=== PATIENT | female | born 1930 | race African-American/Black ===

== ENCOUNTER 2016-08-08 23:46 | Emergency (ER) | payer MEDICARE, OTHER ==
[~2016-08-08] VITALS: Ht 162.6 cm; Wt 68.9 kg
[~2016-08-08 23:46] MED LIST: AMLO10TA2; AMLO10TA2 PO; DILT120C13 PO; FESO4TAB; FESO4TAB PO; FURO20TA3; FURO20TA3 PO; HYDR-2666 PO; HYDR-2868 PO; LISI-334 PO; LISI1TAB5; LISI40TA PO; LORA10TA3; LORA10TA3 PO; LOSA1TAB18 PO; OXYB5TAB7; POTA20TA12; SIMV20TA3; TOLT2TAB4 PO; VENTOLIN HFA18 GM
[2016-08-08 23:58] VITALS: BP 207/84
[2016-08-09] MEDS ORDERED: IV NORMAL SALINE 500ML BAG 500 ML IV ONE (00:15)
[2016-08-09 00:39] LABS: BASO % 1 % (0-3); EOS % 8 % (0-3); HEMATOCRIT 37.6 % (36.0-47.0); HEMOGLOBIN 12.3 g/dL (12.0-15.5); LYMPH # 1.6 x10^3/uL (1.0-4.8); LYMPH % 41 % (24-48); MEAN CORPUSCULAR HEMOGLOBIN 29 pg (25-35); MEAN CORPUSCULAR HGB CONC 33 g/dL (31-37); MEAN CORPUSCULAR VOLUME 89 fL (79-100); MONO % 15 % (0-9); NEUT % 35 % (31-73); PLATELET COUNT 165 x10^3/uL (140-400); RED BLOOD COUNT 4.21 x10^6/uL (3.50-5.40); RED CELL DISTRIBUTION WIDTH 14.1 % (11.5-14.5); WHITE BLOOD COUNT 3.9 x10^3/uL (4.0-11.0)
[2016-08-09 00:42] LABS: CALCIUM 8.7 mg/dL (8.5-10.1); CREATININE 0.9 mg/dL (0.6-1.0); GFR 71.7; POTASSIUM 3.2 mmol/L (3.5-5.1)
--- NOTE | 2016-08-09 00:45 | PHYS DOC ---
Past Medical History Past Medical History: Hypertension Additional Past Medical Histor: POOR HISTORIAN Past Surgical History: , Hysterectomy Alcohol Use: None Drug Use: None Adult General Chief Complaint Chief Complaint: COUGH HPI HPI Patient is a 86 year old female who presents by EMS for 2 weeks of cough with white sputum. She also notes slightly decreased oral intake and fatigue over this time. She denies fever or chills, nausea or vomiting, abdominal pain, chest pain, dyspnea, hemoptysis, leg pain or swelling, orthopnea, exertional dyspnea, exertional chest pain, lightheadedness. Review of Systems Review of Systems Constitutional: Denies fever or chills [] Eyes: Denies change in visual acuity, redness, or eye pain [] HENT: Denies nasal congestion or sore throat [] Respiratory: Denies shortness of breath [] Cardiovascular: No additional information not addressed in HPI [] GI: Denies abdominal pain, nausea, vomiting, bloody stools or diarrhea [] : Denies dysuria or hematuria [] Musculoskeletal: Denies back pain or joint pain [] Integument: Denies rash or skin lesions [] Neurologic: Denies headache, focal weakness or sensory changes [] Endocrine: Denies polyuria or polydipsia [] Current Medications Current Medications Current Medications Medications (Trade) Dose Ordered Sig/Hood Start Time Stop Time Status Last Admin Dose Admin Potassium Chloride (Klor-Con) 20 meq STK-MED ONCE 08/09/16 00:51 08/09/16 00:52 DC Sodium Chloride (Iv Sodium Chloride 0.9% 500ml Bag) 500 ml @ 500 mls/hr 1X ONCE 08/09/16 00:15 08/09/16 01:14 08/09/16 00:18 500 MLS/HR Allergies Allergies Allergies Coded Allergies Type Severity Reaction Last Updated Verified No Known Drug Allergies 05/31/16 No Physical Exam Physical Exam Constitutional: Well developed, well nourished, no acute distress, non-toxic appearance. [] HENT: Normocephalic, atraumatic, bilateral external ears normal, oropharynx moist, no oral exudates, nose normal. [] Eyes: PERRLA, EOMI. [] Neck: Normal range of motion, supple. [] Cardiovascular:Heart rate regular rhythm [] Lungs & Thorax: Bilateral breath sounds clear to auscultation [] Abdomen: Bowel sounds normal, soft, no tenderness. [] Skin: Warm, dry, no erythema, no rash. [] Back: No tenderness, no CVA tenderness. [] Extremities: No tenderness, ROM intact, no edema, no palpable cord. [] Neurologic: Alert and oriented X 3, normal motor function, normal sensory function, no focal deficits noted. [] Psychologic: Affect normal, judgement normal, mood normal. [] Current Patient Data Vital Signs Vital Signs Date Time Temp Pulse Resp B/P Pulse Ox O2 Delivery O2 Flow Rate FiO2 08/08/16 23:58 98.1 80 18 207/84 98 Room Air 98.1 Lab Values Laboratory Tests Test 08/09/16 00:20 White Blood Count 3.9x10^3/uL (4.0-11.0) L Red Blood Count 4.21x10^6/uL (3.50-5.40) Hemoglobin 12.3g/dL (12.0-15.5) Hematocrit 37.6% (36.0-47.0) Mean Corpuscular Volume 89fL (79-100) Mean Corpuscular Hemoglobin 29pg (25-35) Mean Corpuscular Hemoglobin Concent 33g/dL (31-37) Red Cell Distribution Width 14.1% (11.5-14.5) Platelet Count 165x10^3/uL (140-400) Neutrophils (%) (Auto) 35% (31-73) Lymphocytes (%) (Auto) 41% (24-48) Monocytes (%) (Auto) 15% (0-9) H Eosinophils (%) (Auto) 8% (0-3) H Basophils (%) (Auto) 1% (0-3) Neutrophils # (Auto) 1.4x10^3uL (1.8-7.7) L Lymphocytes # (Auto) 1.6x10^3/uL (1.0-4.8) Monocytes # (Auto) 0.6x10^3/uL (0.0-1.1) Eosinophils # (Auto) 0.3x10^3/uL (0.0-0.7) Basophils # (Auto) 0.0x10^3/uL (0.0-0.2) Sodium Level 144mmol/L (136-145) Potassium Level 3.2mmol/L (3.5-5.1) L Chloride Level 106mmol/L (98-107) Carbon Dioxide Level 34mmol/L (21-32) H Anion Gap 4 (6-14) L Blood Urea Nitrogen 15mg/dL (7-20) Creatinine 0.9mg/dL (0.6-1.0) Estimated GFR (Cockcroft-Gault) 71.7 Glucose Level 112mg/dL (70-99) H Calcium Level 8.7mg/dL (8.5-10.1) Laboratory Tests 08/09/16 00:20 Laboratory Tests 08/09/16 00:20 Radiology/Procedures Radiology/Procedures Chest xray as interpreted by me with no acute cardiopulmonary disease process Course & Med Decision Making Course & Med Decision Making Pertinent Labs and Imaging studies reviewed. (See chart for details) Workup is unremarkable other than hypokalemia which was replaced by mouth. Discussed symptomatic care for likely viral upper respiratory infection. She feels comfortable going home. Return precautions given. She understands and agrees with plan. Dragon Disclaimer Dragon Disclaimer This electronic medical record was generated, in whole or in part, using a voice recognition dictation system. Departure Departure Impression: Primary Impression: Upper respiratory infection, viral Disposition: 01 HOME, SELF-CARE Condition: STABLE Referrals: PEYMAN MICHELLE MD (PCP) Patient Instructions: Upper Respiratory Infection, Adult, [id number] Additional Instructions: Use honey to help with cough. Follow-up with your primary care doctor within one week. Return for any concerns. Mike WASHBURN MD Aug 09, 2016 00:45
[2016-08-09] MEDS ORDERED: POTASSIUM CHLORIDE 20 MEQ TABLET.ER. PO ONE ×2 (00:51→02:00)
--- NOTE | 2016-08-09 07:29 | RAD ---
Portable AP upright view CXR: Clinical indications: Cough tonight. Weakness. Comparison: May 31, 2016. Findings: Mild elevation of the left hemidiaphragm is seen. No acute lung infiltrate or pleural effusion or pulmonary edema or lung mass or pneumothorax is seen. The heart size, pulmonary vasculature, mediastinum and both lee are unremarkable. Impression: No acute radiographic abnormality is seen.
== END 2016-08-09 01:13 | disposition home or self-care (01) ==
LOC: ER 23:46
DX: J06.9 Acute upper respiratory infection, unspecified (principal); R53.1 Weakness; I10 Essential (primary) hypertension
CPT/HCPCS: 36415; 71010; 80048; 85027; 96360; 99285; J7040

== ENCOUNTER 2017-07-20 15:29 | Inpatient (IN) | payer MEDICARE, OTHER ==
[2017-07-20 16:19] LABS: ADD MAN DIFF? NO
[2017-07-20 16:21] LABS: BASO % 1 % (0-3); EOS # 0.3 x10^3/uL (0.0-0.7); EOS % 7 % (0-3); HEMATOCRIT 36.1 % (36.0-47.0); HEMOGLOBIN 12.4 g/dL (12.0-15.5); LYMPH % 25 % (24-48); MEAN CORPUSCULAR HEMOGLOBIN 31 pg (25-35); MEAN CORPUSCULAR HGB CONC 34 g/dL (31-37); MEAN CORPUSCULAR VOLUME 90 fL (79-100); MONO # 0.6 x10^3/uL (0.0-1.1); MONO % 15 % (0-9); NEUT % 52 % (31-73); PLATELET COUNT 163 x10^3/uL (140-400); RED BLOOD COUNT 4.02 x10^6/uL (3.50-5.40); RED CELL DISTRIBUTION WIDTH 13.1 % (11.5-14.5); WHITE BLOOD COUNT 3.8 x10^3/uL (4.0-11.0)
[2017-07-20 16:31] LABS: INR 1.1 (0.8-1.1); PROTHROMBIN TIME PATIENT 13.6 SEC (11.7-14.0)
[2017-07-20 16:40] LABS: ALBUMIN 3.2 g/dL (3.4-5.0); ALK PHOS 90 U/L (46-116); ALT (SGPT) 32 U/L (14-59); ANION GAP 9 (6-14); AST (SGOT) 44 U/L (15-37); BLOOD UREA NITROGEN 16 mg/dL (7-20); CALCIUM 8.7 mg/dL (8.5-10.1); CARBON DIOXIDE 33 mmol/L (21-32); CHLORIDE 103 mmol/L (98-107); DIRECT BILIRUBIN 0.4 mg/dL (0.0-0.2); GFR 63.3; GLUCOSE 91 mg/dL (70-99); LIPASE 209 U/L (73-393); MAGNESIUM 2.1 mg/dL (1.8-2.4); SODIUM 145 mmol/L (136-145); TOTAL BILIRUBIN 0.8 mg/dL (0.2-1.0); TOTAL PROTEIN 6.6 g/dL (6.4-8.2)
[2017-07-20 16:41] LABS: POTASSIUM 2.8 mmol/L (3.5-5.1)
[2017-07-20 16:42] LABS: TROPONINI < 0.017 ng/mL (0.000-0.055)
[2017-07-20 16:44] LABS: BILIRUBIN,URINE SMALL (NEG); CLARITY,URINE CLEAR; COLOR,URINE AMBER; GLUCOSE,URINE NEGATIVE (NEG); NITRITE,URINE NEGATIVE (NEG); PROTEIN,URINE 100 mg/dL (NEG-TRACE)
[2017-07-20 16:48] LABS: THYROID STIM HORMONE (TSH) 2.013 uIU/mL (0.358-3.74)
[2017-07-20 16:49] LABS: CKMB MASS 1.3 ng/mL (0.0-3.6); CREATINE KINASE 124 U/L (26-192)
[2017-07-20 16:49] LABS: NT-PRO BNP 6041 pg/mL (0-449)
[2017-07-20 16:51] LABS: AMPHETAMINE/METHAMPHETAMINE NEG (NEG); BARBITURATES NEG (NEG); BENZODIAZEPINES NEG (NEG); CANNABINOIDS NEG (NEG); COCAINE NEG (NEG); ETHANOL, URINE NEG (NEG); METHADONE NEG (NEG); OPIATES NEG (NEG); PHENCYCLIDINE NEG (NEG)
[2017-07-20 16:57] LABS: BACTERIA,URINE 0 /HPF (0-FEW); WBC,URINE OCC /HPF (0-4)
[2017-07-20 16:58] LABS: HYALINE CASTS, URINE MANY /HPF
[2017-07-20 17:11] LABS: INFLUENZA A PATIENT NEGATIVE (NEGATIVE); INFLUENZA B PATIENT NEGATIVE (NEGATIVE); OBC FLU VALID
[2017-07-20] MEDS: hydrALAZINE 20 MG/ML VIAL. IVP (17:20)
[2017-07-20] MEDS: POTASSIUM CHLORIDE 20 MEQ TABLET.ER. PO (17:29)
[2017-07-20] MEDS ORDERED: ONDANSETRON PF 4 MG/2 ML VIAL. IV (17:45)
[2017-07-20] MEDS: POTASSIUM CL 20MEQ D5-0.45NACL 1,000 ML IV (22:54)
[2017-07-20] MEDS: OXYBUTYNIN CHLORIDE 5 MG TABLET PO (22:54)
[2017-07-20] MEDS: hydrALAZINE 25 MG TABLET PO (22:54)
[2017-07-21] LABS: TROPONINI 0.024 ng/mL (0.000-0.055)
[2017-07-21] MEDS ORDERED: INFLUENZA VAX SCREEN BY RX. MC (01:45)
[2017-07-21] MEDS ORDERED: PNEUMOCOCCAL VAX SCREEN BY RX. MC (01:45)
[2017-07-21 05:23] LABS: ADD MAN DIFF? NO
[2017-07-21 05:59] LABS: ANION GAP 9 (6-14); BLOOD UREA NITROGEN 14 mg/dL (7-20); CALCIUM 8.5 mg/dL (8.5-10.1); CARBON DIOXIDE 30 mmol/L (21-32); CHLORIDE 103 mmol/L (98-107); GFR 63.3; GLUCOSE 94 mg/dL (70-99); POTASSIUM 3.4 mmol/L (3.5-5.1); SODIUM 142 mmol/L (136-145)
[2017-07-21 06:04] LABS: BASO % 1 % (0-3); EOS # 0.3 x10^3/uL (0.0-0.7); EOS % 6 % (0-3); HEMATOCRIT 37.5 % (36.0-47.0); HEMOGLOBIN 12.6 g/dL (12.0-15.5); LYMPH # 1.5 x10^3/uL (1.0-4.8); LYMPH % 35 % (24-48); MEAN CORPUSCULAR HEMOGLOBIN 30 pg (25-35); MEAN CORPUSCULAR HGB CONC 34 g/dL (31-37); MEAN CORPUSCULAR VOLUME 90 fL (79-100); MONO # 0.6 x10^3/uL (0.0-1.1); MONO % 13 % (0-9); NEUT % 46 % (31-73); PLATELET COUNT 176 x10^3/uL (140-400); RED BLOOD COUNT 4.17 x10^6/uL (3.50-5.40); RED CELL DISTRIBUTION WIDTH 13.3 % (11.5-14.5); WHITE BLOOD COUNT 4.5 x10^3/uL (4.0-11.0)
[2017-07-21 06:12] LABS: TROPONINI 0.022 ng/mL (0.000-0.055)
[2017-07-21] MEDS: OXYBUTYNIN CHLORIDE 5 MG TABLET PO ×2 (08:35→21:09)
[2017-07-21] MEDS: FUROSEMIDE 20 MG TABLET PO (08:35)
[2017-07-21] MEDS: hydroCHLOROthiazide 12.5 MG CAPSULE PO (08:35)
[2017-07-21] MEDS: LOSARTAN POTASSIUM 50 MG TABLET. PO (08:35)
[2017-07-21] MEDS: hydrALAZINE 25 MG TABLET PO ×4 (08:35→21:10)
[2017-07-21] MEDS: POTASSIUM CHLORIDE 20 MEQ/15 ML ORAL LIQUID. PO (08:44)
[2017-07-21] MEDS: POTASSIUM CL 20MEQ D5-0.45NACL 1,000 ML IV (10:59)
[2017-07-21] MEDS ORDERED: SALIVA STIMULANT AGENT 44ML SPRAY BOTTLE. PO (11:15)
[2017-07-21] MEDS: amLODIPine BESYLATE 2.5 MG TABLET PO ×2 (13:06→23:56)
[2017-07-21] MEDS: PNEUMOC CONJ VACC 23-VALENT 0.5 ML VIAL. VAX IM (13:08)
[2017-07-21] MEDS: FLU VACC QS2017-18 (36MOS+)/PF 0.5 ML SYRINGE. VAX IM (13:09)
[2017-07-21] MEDS: NITROGLYCERIN OINT 1 GM PACKET. TP (23:56)
[2017-07-22] MEDS: POTASSIUM CL 20MEQ D5-0.45NACL 1,000 ML IV ×2 (01:38→15:21)
[2017-07-22] MEDS: ACETAMINOPHEN 500 MG TABLET PO (03:14)
[2017-07-22] MEDS: NITROGLYCERIN OINT 1 GM PACKET. TP ×4 (06:09→23:11)
[2017-07-22 06:20] LABS: ANION GAP 6 (6-14); BLOOD UREA NITROGEN 17 mg/dL (7-20); CALCIUM 8.1 mg/dL (8.5-10.1); CARBON DIOXIDE 30 mmol/L (21-32); CHLORIDE 103 mmol/L (98-107); CHOLESTEROL 105 mg/dL (0-200); CREATININE 1.1 mg/dL (0.6-1.0); GFR 56.7; GLUCOSE 96 mg/dL (70-99); HDLC 46 mg/dL (40-60); LDLC 50 mg/dL (0-100); MAGNESIUM 1.9 mg/dL (1.8-2.4); NON-HDL CHOLESTEROL 59 mg/dL (0-129); POTASSIUM 3.3 mmol/L (3.5-5.1); SODIUM 139 mmol/L (136-145); TRIGLYCERIDES 43 mg/dL (0-150); VLDLC 9 mg/dL (0-40)
[2017-07-22 06:27] LABS: CHOLESTEROL/HDL RATIO 2.3
[2017-07-22] MEDS: amLODIPine BESYLATE 2.5 MG TABLET PO (07:50)
[2017-07-22] MEDS: hydrALAZINE 25 MG TABLET PO ×4 (07:50→20:50)
[2017-07-22] MEDS: FUROSEMIDE 20 MG TABLET PO (07:51)
[2017-07-22] MEDS: OXYBUTYNIN CHLORIDE 5 MG TABLET PO ×2 (07:51→20:50)
[2017-07-22] MEDS: POTASSIUM CHLORIDE 20 MEQ/15 ML ORAL LIQUID. PO ×2 (07:51→20:51)
[2017-07-22] MEDS: LOSARTAN POTASSIUM 50 MG TABLET. PO (07:51)
[2017-07-22] MEDS: hydroCHLOROthiazide 12.5 MG CAPSULE PO (07:58)
[2017-07-22] MEDS: LABETALOL 20 MG/4 ML DISP.SYRIN. IVP (08:59)
[2017-07-22] MEDS: ONDANSETRON PF 4 MG/2 ML VIAL. IV (16:12)
[2017-07-22] MEDS ORDERED: ALBUTEROL SULFATE 2.5 MG/3 ML NEBU. NEB (18:30)
[2017-07-22] MEDS: ATORVASTATIN CALCIUM 10 MG TABLET. PO (20:50)
[2017-07-23] MEDS: POTASSIUM CL 20MEQ D5-0.45NACL 1,000 ML IV ×2 (05:43→12:25)
[2017-07-23] MEDS: NITROGLYCERIN OINT 1 GM PACKET. TP ×4 (05:59→23:24)
[2017-07-23 06:06] LABS: ADD MAN DIFF? NO
[2017-07-23] MEDS: LABETALOL 20 MG/4 ML DISP.SYRIN. IVP ×2 (06:06→08:16)
[2017-07-23 06:36] LABS: ANION GAP 5 (6-14); BLOOD UREA NITROGEN 13 mg/dL (7-20); CALCIUM 7.8 mg/dL (8.5-10.1); CARBON DIOXIDE 29 mmol/L (21-32); CHLORIDE 106 mmol/L (98-107); CREATININE 0.9 mg/dL (0.6-1.0); GFR 71.5; GLUCOSE 91 mg/dL (70-99); MAGNESIUM 1.9 mg/dL (1.8-2.4); SODIUM 140 mmol/L (136-145)
[2017-07-23 06:55] LABS: BASO % 0 % (0-3); EOS # 0.2 x10^3/uL (0.0-0.7); EOS % 7 % (0-3); HEMATOCRIT 33.1 % (36.0-47.0); HEMOGLOBIN 10.9 g/dL (12.0-15.5); LYMPH % 34 % (24-48); MEAN CORPUSCULAR HEMOGLOBIN 30 pg (25-35); MEAN CORPUSCULAR HGB CONC 33 g/dL (31-37); MEAN CORPUSCULAR VOLUME 90 fL (79-100); MONO # 0.4 x10^3/uL (0.0-1.1); MONO % 16 % (0-9); NEUT # 1.2 x10^3uL (1.8-7.7); NEUT % 43 % (31-73); PLATELET COUNT 147 x10^3/uL (140-400); RED BLOOD COUNT 3.69 x10^6/uL (3.50-5.40); RED CELL DISTRIBUTION WIDTH 13.2 % (11.5-14.5); WHITE BLOOD COUNT 2.8 x10^3/uL (4.0-11.0)
[2017-07-23] MEDS: FUROSEMIDE 20 MG TABLET PO (08:10)
[2017-07-23] MEDS: hydrALAZINE 25 MG TABLET PO ×3 (08:11→21:06)
[2017-07-23] MEDS: hydroCHLOROthiazide 12.5 MG CAPSULE PO (08:11)
[2017-07-23] MEDS: OXYBUTYNIN CHLORIDE 5 MG TABLET PO ×2 (08:11→21:05)
[2017-07-23] MEDS: LISINOPRIL 20 MG TABLET PO (08:12)
[2017-07-23] MEDS: amLODIPine BESYLATE 10 MG TABLET PO (08:13)
[2017-07-23] MEDS: POTASSIUM CHLORIDE 20 MEQ/15 ML ORAL LIQUID. PO (08:14)
[2017-07-23] MEDS: ACETAMINOPHEN 500 MG TABLET PO (08:18)
[2017-07-23] MEDS ORDERED: amLODIPine BESYLATE 10 MG TABLET PO (09:00)
[2017-07-23] MEDS ORDERED: LISINOPRIL 20 MG TABLET PO (09:00)
[2017-07-23] MEDS: POTASSIUM CHLORIDE 20 MEQ TABLET.ER. PO (18:12)
[2017-07-23] MEDS: ATORVASTATIN CALCIUM 10 MG TABLET. PO (21:05)
[2017-07-24] MEDS: NITROGLYCERIN OINT 1 GM PACKET. TP (06:15)
[2017-07-24] MEDS: OXYBUTYNIN CHLORIDE 5 MG TABLET PO (09:29)
[2017-07-24] MEDS: POTASSIUM CHLORIDE 20 MEQ TABLET.ER. PO (09:29)
[2017-07-24] MEDS: FUROSEMIDE 20 MG TABLET PO (09:29)
[2017-07-24] MEDS: amLODIPine BESYLATE 10 MG TABLET PO (09:29)
[2017-07-24] MEDS: LISINOPRIL 20 MG TABLET PO (09:30)
[2017-07-24] MEDS: hydrALAZINE 25 MG TABLET PO ×2 (09:30→14:21)
[2017-07-24] MEDS: LISINOPRIL 10 MG TABLET PO (09:33)
== END 2017-07-24 17:00 | DRG 291 ==
LOC: ER 15:29 → 2 SOUTH 17:35
DX: I13.0 Hypertensive heart and chronic kidney disease with heart failure and stage 1 through stage 4 chronic kidney disease, or unspecified chronic kidney disease (principal); I50.43 Acute on chronic combined systolic (congestive) and diastolic (congestive) heart failure; G93.41 Metabolic encephalopathy; F03.90 Unspecified dementia, unspecified severity, without behavioral disturbance, psychotic disturbance, mood disturbance, and anxiety; E11.22 Type 2 diabetes mellitus with diabetic chronic kidney disease; I16.1 Hypertensive emergency; E78.5 Hyperlipidemia, unspecified; E87.6 Hypokalemia; N18.2 Chronic kidney disease, stage 2 (mild); J45.909 Unspecified asthma, uncomplicated; Z90.710 Acquired absence of both cervix and uterus; M19.90 Unspecified osteoarthritis, unspecified site
CPT/HCPCS: 36415; 70450; 71045; 80048; 80061; 80076; 80307; 81001; 82553; 83690; 83735; 83880; 84443; 84484; 85025; 85610; 87804; 87804-59; 90686; 90732; 93005; 93306; 97110-GP; 97116-GP; 97162-GP; 97166-GO; 97535-GO; J0360; J2405; J3490